=== PATIENT | female | born 1950 | race Caucasian/White ===

== ENCOUNTER 2020-05-16 10:54 | Outpatient (REF) | payer MEDICARE, SELFPAY ==
--- NOTE | ~2020-05-16 | MM_ITS ---
EXAMINATION: BONE DENSITOMETRY CLINICAL INDICATION: History of osteopenia. Other specified disorders of bone density and structure. Postmenopausal. COMPARISON: Previous BD dated 03/17/2018 and baseline BD dated 02/01/2012. TECHNIQUE: Using a [employer] DXA System (software version: 13.1) manufactured by [employer], dual-energy x-ray absorptiometry was performed of the lumbar spine and left hip. The images are of good technical quality. Summary results are attached. FINDINGS: AP SPINE L1-L4: Current: BMD 1.019 g/cm2, Z-score -0.7, T-score -1.3, osteopenia, 3.6% increase from previous, 18.4% increase from baseline (<5% change is not significant). Prior: BMD 0.984 g/cm2. Baseline: BMD 0.861 g/cm2. LEFT FEMUR, NECK: Current: BMD 0.858 g/cm2, Z-score -0.3, T-score -1.3, osteopenia. Prior: BMD 0.761 g/cm2. Baseline: BMD 0.828 g/cm2. LEFT FEMUR, TOTAL: Current: BMD 0.961 g/cm2, Z-score 0.4, T-score -0.4, normal, 13.9% increase from previous, 4.8% increase from baseline (<5% change is not significant). Prior: BMD 0.844 g/cm2. Baseline: BMD 0.917 g/cm2. IDENTIFIED RISK FACTORS: Osteoporosis. Low calcium intake. History of fracture, (adult). Family history, (parent hip fracture). Secondary osteoporosis, (early menopause). HISTORY OF FRACTURE: Femur. Wrist. MEDICATIONS: Vitamin D. MM/XR DEXA axial skeleton IMPRESSION: 1. DIAGNOSIS: Osteopenia based on the lowest T-score value of -1.3 in the lumbar spine and femoral neck applying World Health Organization criteria. 2. 10-YEAR FRACTURE RISK PREDICTION, FRAX: Major osteoporotic fracture (clinical spine, forearm, hip or shoulder) 20.8%. Hip fracture 3.1%. 3. Treatment Recommendations: NOF guidelines recommend consideration for treatment in postmenopausal women and men age 50 and older presenting with the following: -A hip or vertebral (clinical or morphometric) fracture. -T-score less than or equal to -2.5 at the femoral neck or spine after appropriate evaluation to exclude secondary causes. -Low bone mass at the hip or spine and a 10-year fracture probability by FRAX of greater than or equal to 3% for hip fracture or greater than or equal to 20% for major osteoporotic fracture based on the [place] adapted WHO algorithm. 4. Other Recommendations: All treatment decisions require clinical judgment and consideration of individual patient factors, including patient preferences, comorbidities, previous drug use, risk factors not captured in the FRAX model (e.g. frailty, falls, vitamin D deficiency, increased bone turnover, interval significant decline in bone density) and possible under or overestimation of fracture risk by FRAX. Additional medical evaluation for secondary cause of low bone mineral density may be appropriate. FUTURE SCAN RECOMMENDATION: People with diagnosed cases of osteoporosis or at high risk for fracture should have regular bone mineral density tests. For patients eligible for Medicare, routine testing is allowed once every 2 years. The testing frequency can be increased to one year for patients who have rapidly progressing disease, those who are receiving or discontinuing medical therapy to restore bone mass, or have additional risk factors. risk factors.
== END 2020-05-16 10:55 | disposition home or self-care (01) ==
LOC: HO.MAMMO 10:54
PROVIDERS: PCP Internal Medicine; Visit Provider Internal Medicine Endocrinology, Diabetes & Metabolism
DX: M81.0 Age-related osteoporosis without current pathological fracture (principal); Z78.0 Asymptomatic menopausal state; Z79.899 Other long term (current) drug therapy
CPT/HCPCS: 77080

== ENCOUNTER 2022-01-04 08:26 | Day surgery (SDC) | payer MEDICARE, SELFPAY ==
--- NOTE | 2022-01-01 08:01 | HO.ANESPROP2 ---
Documented by User: Sherri Pinto NP 01/01/22 10:32 HPI - Anesthesia Eval Consult details Narrative: 71yo F for Colonoscopy CAD s/p stents x 2 (2011), remains on plavix. [facility] Past Medical History Medical History (Updated 12/31/21 @ 14:10 by Kiersten Pedraza RN) CAD (coronary artery disease) Depression Elevated cholesterol GERD (gastroesophageal reflux disease) HTN (hypertension) Sleep apnea Surgical History Surgical History (Updated 12/31/21 @ 14:14 by Kiersten Pedraza RN) History of bladder suspension procedure History of endometrial ablation History of surgery on lower extremity Hx of cataract extraction Social History Social History Patient Tobacco Use Status: Never used Tobacco Use of substances other than those prescribed or required for medical reasons: No Are you DNR?: No Advance Directives: No Advance Directives Information Provided: Yes Meds Allergies Allergy/AdvReac Type Severity Reaction Status Date / Time Codeine Sulfate Allergy Unknown Uncoded 03/15/13 00:00 Home Medications Medication Instructions Recorded Confirmed Last Taken Type Cinnamon 01/01/22 Unknown History Vitamin C 01/01/22 Unknown History amlodipine 5 mg tablet 5 mg PO DAILY 01/01/22 01/01/22 Unknown History aspirin 81 mg tablet 81 mg PO DAILY 01/01/22 01/01/22 Unknown History atorvastatin 80 mg tablet 80 mg PO DAILY 01/01/22 01/01/22 Unknown History calcium citrate 01/01/22 01/01/22 Unknown History clopidogrel 75 mg tablet 75 mg PO DAILY 01/01/22 01/01/22 Unknown History duloxetine 60 mg capsule,delayed 60 mg PO DAILY 01/01/22 01/01/22 Unknown History release green tea leaf extract (Green Tea cap PO 01/01/22 Unknown History capsule) isosorbide mononitrate 60 mg 60 mg PO DAILY 01/01/22 01/01/22 Unknown History tablet,extended release 24 hr metoprolol succinate 100 mg 100 mg PO DAILY 01/01/22 01/01/22 Unknown History tablet,extended release 24 hr xdyqqbnbzbbd-dhrhaeoz-yxroot tablet 1 tab PO DAILY 01/01/22 01/01/22 Unknown History pantoprazole 20 mg tablet,delayed 40 mg PO DAILY 01/01/22 01/01/22 Unknown History release vitamin P66-jwcqa acid 01/01/22 Unknown History Exam Exam Date and Time: January 01, 2022 0801 Assessment and Plan Assessment Anesthesia Assessment: Chart Reviewed Documented by User: Raisa Wick MD 01/04/22 09:34 HPI - Anesthesia Eval Consult details Narrative: 71yo F for Colonoscopy CAD s/p stents x 2 (2011), remains on plavix. Last dose 12/29/21 PMFSH Past Medical History Medical History (Updated 12/31/21 @ 14:10 by Kiersten Pedraza, RN) CAD (coronary artery disease) Depression Elevated cholesterol GERD (gastroesophageal reflux disease) HTN (hypertension) Sleep apnea Family History Family history of problems with anesthesia: No Surgical History Surgical History (Updated 12/31/21 @ 14:14 by Kiersten Pedraza, RN) History of bladder suspension procedure History of endometrial ablation History of surgery on lower extremity Hx of cataract extraction History of Problems with Anesthesia: No Social History Social History Patient Tobacco Use Status: Never used Tobacco Use of substances other than those prescribed or required for medical reasons: No Are you DNR?: No Advance Directives: No Advance Directives Information Provided: Yes Meds Allergies Allergy/AdvReac Type Severity Reaction Status Date / Time Codeine Sulfate Allergy Unknown Uncoded 03/15/13 00:00 Home Medications Medication Instructions Recorded Confirmed Last Taken Type Cinnamon 01/01/22 Unknown History Vitamin C 01/01/22 Unknown History amlodipine 5 mg tablet 5 mg PO DAILY 01/01/22 01/01/22 Unknown History aspirin 81 mg tablet 81 mg PO DAILY 01/01/22 01/01/22 Unknown History atorvastatin 80 mg tablet 80 mg PO DAILY 01/01/22 01/01/22 Unknown History calcium citrate 01/01/22 01/01/22 Unknown History clopidogrel 75 mg tablet 75 mg PO DAILY 01/01/22 01/01/22 Unknown History duloxetine 60 mg capsule,delayed 60 mg PO DAILY 01/01/22 01/01/22 Unknown History release green tea leaf extract (Green Tea cap PO 01/01/22 Unknown History capsule) isosorbide mononitrate 60 mg 60 mg PO DAILY 01/01/22 01/01/22 Unknown History tablet,extended release 24 hr metoprolol succinate 100 mg 100 mg PO DAILY 01/01/22 01/01/22 Unknown History tablet,extended release 24 hr pzcxgobmrtpx-pkwhkxxf-baoyge tablet 1 tab PO DAILY 01/01/22 01/01/22 Unknown History pantoprazole 20 mg tablet,delayed 40 mg PO DAILY 01/01/22 01/01/22 Unknown History release vitamin V60-cfuba acid 01/01/22 Unknown History Exam Height,Weight and Vital Signs: Height 5 ft 1 in Weight 92.986 kg Vital Signs Temp Pulse Resp BP Pulse Ox O2 Del Method 01/04/22 09:00 97.3 F 57 16 148/67 H 95 Room Air Airway Mallampati Class: III TM Dist: >3cm Neck ROM: Full Loose/Missing/Broken Teeth: No (Denies broken, loose or missing teeth) Heart: RRR Lungs: CTAB Assessment and Plan Assessment Anesthesia Assessment: Anesthesia Plan Discussed Final Anesthetic Review Family History of Problems with Anesthesia: No History of Problems with Anesthesia: No NPO: Yes ASA Class: III Final Preanesthetic Review: No Changes in Pt Med Stat, Meds/Allgs Chart Reviewed, Consent Obtained/Reviewed and Anes Risks/Benef Reviewed Patient Risk: Intermediate Procedure Risk: Low Assessment/Block/Sedation in SS: Assess/Block/Sedation-SS Anesthetic Plan Anesthetic Plan: MAC: Disposition: Standard PACU
[2022-01-04 08:56] VITALS: BMI 38.7
[2022-01-04 09:00] VITALS: BP 148/67; PULSE 57; RESP 16; TEMP 36.3; O2SAT 95
[2022-01-04] MEDS: Lactated Ringers 1,000 ML 100 ML IVCONT (09:14)
[2022-01-04 10:09] VITALS: BP 128/71; PULSE 66; RESP 20; TEMP 36.7; O2SAT 96
--- NOTE | 2022-01-04 10:11 | P.BOP_ITS ---
Brief Operative Note Date of Service: 01/04/22 Pre-op diagnosis: Screening Post-op diagnosis: other (Diverticulosis) Procedure: Colonoscopy to the cecum and TI Surgeon: Parth Neri Anesthesia: MAC Was an Public Relations Counselor used for this Procedure?: No Estimated blood loss (mL): 0 Pathology: none sent Condition: stable Disposition: PACU
[2022-01-04 10:24] VITALS: BP 138/68; PULSE 64; RESP 20; O2SAT 94
[2022-01-04 10:39] VITALS: BP 140/86; PULSE 63; TEMP 36.8; O2SAT 96
--- NOTE | 2022-01-05 14:06 | OP_ITS ---
SURGEON: Parth Neri MD INDICATIONS: The patient presents for evaluation of colorectal cancer screening. Full consent was obtained from her for this, including risks of bleeding and perforation. PREOPERATIVE DIAGNOSIS: Colorectal cancer screening. POSTOPERATIVE DIAGNOSIS: PROCEDURE PERFORMED: Colonoscopy to the cecum and terminal ileum. ESTIMATED BLOOD LOSS: COMPLICATIONS: ANESTHESIA: Medication used; monitored anesthesia care. ASSISTANTS: SPECIMENS: POSTOPERATIVE DIAGNOSES: Colorectal cancer screening, diverticulosis, internal hemorrhoids. DESCRIPTION OF PROCEDURE: The patient was placed in the left lateral decubitus position. The digital rectal exam revealed no abnormalities. The Olympus video pediatric colonoscope was entered into the rectum and advanced easily to the cecum. Once in the cecum, I did identify normal-appearing cecal pouch with appendiceal orifice and a normal-appearing ileocecal valve. The terminal ileum was cannulated and appeared normal. The scope withdrawn back in the colon. The entire cecum and ileocecal valve appeared normal. Scope was slowly withdrawn assessing all mucosal surfaces carefully. Preparation was excellent. I did not visualize any sign of polyps, colitis, nor angiodysplasia. There was a moderate amount of sigmoid diverticulosis. In the rectum, scope was retroflexed, visualizing internal hemorrhoids, but no other pathology. The rectal mucosa appeared normal. The scope was straightened and withdrawn from the patient. She tolerated the procedure well and was returned to recovery area in stable condition. IMPRESSION: 1. Diverticulosis . 2. Internal hemorrhoids. PLAN: Given the negative exam, negative colonoscopy in 2010, and no family history of colon cancer, I do not think she will need any further screening colonoscopies given her age of 71. She will otherwise see me on a p.r.n. basis. She was advised to resume her aspirin and Plavix today. MD ADINA Santana/AIMEE / [phone]
== END 2022-01-04 11:03 | disposition home or self-care (01) ==
PROVIDERS: PCP Internal Medicine; Visit Provider Internal Medicine
PROC: 0DJD8ZZ Inspection of Lower Intestinal Tract, Via Natural or Artificial Opening Endoscopic (ICD-10-PCS; CPT 45378; principal; 2022-01-04 09:30)
DX: Z12.11 Encounter for screening for malignant neoplasm of colon (principal); K57.30 Diverticulosis of large intestine without perforation or abscess without bleeding; K64.8 Other hemorrhoids; K21.9 Gastro-esophageal reflux disease without esophagitis; G47.30 Sleep apnea, unspecified; I25.10 Atherosclerotic heart disease of native coronary artery without angina pectoris; Z98.61 Coronary angioplasty status; I10 Essential (primary) hypertension; F32.A Depression, unspecified; Z79.01 Long term (current) use of anticoagulants; Z79.82 Long term (current) use of aspirin; Z79.899 Other long term (current) drug therapy; Z99.89 Dependence on other enabling machines and devices; Z88.8 Allergy status to other drugs, medicaments and biological substances
CPT/HCPCS: G0121

== ENCOUNTER 2025-01-30 09:06 | Outpatient (REF) | payer MEDICARE, SELFPAY ==
--- NOTE | ~2025-01-30 | MM_ITS ---
EXAMINATION: MM SCREENING DIGITAL BREAST TOMOSYNTHESIS, BILATERAL CLINICAL INFORMATION: Screening. Asymptomatic. COMPARISON: Comparison made to multiple prior, most recent January 22, 2016, and most remote January 20, 2009. TECHNIQUE: Digital breast tomosynthesis is performed in mediolateral oblique and craniocaudal views along with computer-aided detection (CAD). Synthesized 2D images are generated from the tomosynthesis. FINDINGS: BREAST COMPOSITION: The breasts are heterogeneously dense, which may obscure small masses. BILATERAL BREASTS: No significant masses, suspicious calcifications or other abnormalities are seen in either breast. MM/MM tomosynthesis screening BI IMPRESSION: BILATERAL BREASTS: Negative, no mammographic evidence of malignancy. Normal interval follow-up is recommended in 12 months. ASSESSMENT: BI-RADS: Category 1: Negative RECOMMENDATION: Routine annual mammography screening. FOLLOW-UP: 1 year F/U This examination should not preclude the clinical evaluation of a suspicious palpable abnormality. This patient's information was entered into a reminder system with a target due date for their next mammogram. Electronically signed by: Bea Ritter MD 01/30/2025 07:26 PM [facility]
== END 2025-01-30 09:07 | disposition home or self-care (01) ==
LOC: HO.MAMMO 09:06
PROVIDERS: Visit Provider Internal Medicine
DX: Z12.31 Encounter for screening mammogram for malignant neoplasm of breast (principal)
CPT/HCPCS: 77063; 77067

== ENCOUNTER → 2025-01-30 09:15 | Outpatient (BNV) | payer MEDICARE, SELFPAY | PROVIDERS: Visit Provider Radiology Body Imaging | DX: Z12.31 Encounter for screening mammogram for malignant neoplasm of breast (principal) | CPT/HCPCS: 77063; 77067 ==